=== PATIENT | female | born 1940 | race Hispanic/Latino ===

== ENCOUNTER 2023-04-14 17:10 | Emergency (ER) | payer OTHER, SELFPAY ==
[2023-04-14 17:13] VITALS: BP 203/90; BMI 36.4
[2023-04-14 17:20] VITALS: BP 174/86
[2023-04-14] MEDS: VALIUM INJECTION 2 MG IV (19:34)
[2023-04-14] MEDS: TORADOL 15 MG IV (19:34)
--- NOTE | 2023-04-14 22:07 | ED.GENMED ---
History of Present Illness
General
Chief Complaint: Generalized Pain
Source: patient
Exam Limitations: none
Time Seen by Provider: 04/14/23 19:07
Nursing documentation reviewed up to this point in time: agreed with
Travel History
Have you had any contact with someone who has COVID-19?: No
Do you have any symptoms of coronavirus? Fever > 100 degrees, chills, cough, shortness of breath, sore throat, loss of taste or smell, muscle aches, or headache?: No
History of Present Illness
History of Present Illness:
Patient to ED with complaint of left neck pain. Pain has been ongoikng for many months. Now states she can not turn her head. Denies fever/chills, recent illness. No history of trauma. States she was told by PCP that she has arthritis in her
neck. Brought to ED by family for eval.
Past History
Past History
ED Past Medical History: None
ED Past Surgical History: None
Review of Systems
Review of Systems
Allergies reviewed?: Yes
All Other Systems: ROS reviewed and negative except as documented in HPI and ROS
Constitutional: Reports no symptoms
EENT: Reports no symptoms
Musculoskeletal: Reports neck pain
Skin: Reports no symptoms
Neurological: Reports no symptoms
Psychiatric: Reports no symptoms
Phy Exam
General Physical Exam
General Presentation: well appearing and no apparent distress
General age: appears stated age
General Skin: warm and dry
General Habitus: normal
General Mental: alert
Neurological Exam
Neurological Exam: alert and oriented x3
Musculoskeletal Exam
Musculoskeletal Exam: neuro vasc intact and other (Left lat neck pain. Pain is worse with movement. No history of trauma. No weakness in extremities. No headache, dizziness. Improved with pain medications. )
Skin Exam
Skin Exam: normal color, warm/dry and no rash
Psychiatric Exam
Psychiatric Exam: normal mood/affect
Course
Orders/Labs/Results
Orders:
Orders
04/14/23 19:21
Ketorolac [Toradol] 15 mg IV NOW STA
diazePAM [Valium Injection] 2 mg IV NOW STA
04/14/23 19:48
Cervical Spine 4 or 5 Vw [CR Cervical Spine 4 Or 5 Vw] Urgent
Comment:
Reason For Exam: pain
Vital Signs
Initial and Last Documented VS:
Initial Vital Signs
Temp Pulse Resp BP Pulse Ox
97.5 F 71 16 203/90 98
04/14/23 17:13 04/14/23 17:13 04/14/23 17:13 04/14/23 17:13 04/14/23 17:13
Last Documented Vital Signs
Temp Pulse Resp BP Pulse Ox
97.5 F 71 16 174/86 98
04/14/23 17:13 04/14/23 17:13 04/14/23 17:13 04/14/23 17:20 04/14/23 17:13
*Critical Care Note
Total Time (30-74mins, 75-104mins- exclusive of procedures): Not Applicable
ED Attending Note
-
Portions of this chart may have been created with voice recognition software.� Occasional wrong word or��sound alike� substitutions may have occurred due to the inherent limitations of voice recognition software.
Discharge Plan
Departure
Patient Disposition: Home (Routine Discharge)
Date of Disposition: 04/14/23
Time of Disposition: 20:53
Patient with high blood pressure during this ER visit?: No
Condition: Good
Covid-19: Not Applicable
Discharge Problem:
Neck pain
Instructions: Neck pain
Prescriptions:
New
cyclobenzaprine 10 mg tablet
10 mg PO TID PRN (Reason: muscle spasm) Qty: 10 0RF
hydrocodone-acetaminophen 5-325 mg tablet
1 tab PO Q4H PRN (Reason: Pain) Qty: 10 0RF
Referrals:
Claudia Parikh MD [Active] - Call in 1-3 days for appt
Ania Melendrez MD [Family Provider] -
Interventions
Interventions:
*Risk Screen - Suicide Last Done: 04/14/23 17:13
*General Assessment Last Done: 04/14/23 18:03
*Neglect/Abuse Screening Last Done: 04/14/23 17:13
ED- Fall Risk Assessment Last Done: 04/14/23 18:03
*ED COVID-19 Vaccine History Last Done: 04/14/23 17:13
*Nursing Disposition Last Done: 04/14/23 21:19
Discharge Date and Time
Discharge Date/Time: 04/14/23 21:19
Musculoskeletal Injury Exam
Musculoskeletal Injury Exam
Left Neck:
Pain with Movement?: Moderate
Tender to palpation?: None
Soft tissue swelling?: None
External deformity and angulation?: None
Joint effusion?: None
Contusion?: None
Strain- Sprain- Tear (Connective tissue injury)?: Moderate
Crepitus with movement?: No
Joint instability?: No
Malalignment/deformity?: No
Range of motion: Limited
Distal skin color and temperature: normal-warm & good color
Capillary Refill: normal
Normal distal neurovascular exam?: Yes
== END 2023-04-14 21:19 | disposition home or self-care (01) ==
LOC: EMR 17:10
PROVIDERS: EMERGENCY PHYSICIAN Emergency Medicine; FAMILY PHYSICIAN Internal Medicine
DX: M54.2 Cervicalgia (principal)
CPT/HCPCS: 99283; 96374; 96375; 72050

== ENCOUNTER → 2023-06-30 08:16 | Outpatient (REF) | payer OTHER, SELFPAY | LOC: MRI 08:16 | PROVIDERS: ATTENDING PHYSICIAN Family Medicine Sports Medicine; FAMILY PHYSICIAN Nurse Practitioner | DX: M47.22 Other spondylosis with radiculopathy, cervical region (principal); R20.2 Paresthesia of skin | CPT/HCPCS: 72141 ==